=== PATIENT | female | born 1960 | race Two or more races ===

== ENCOUNTER 2017-12-12 07:48 | Outpatient (CLI) | payer OTHER ==
[~2017-12-12 07:48] MED LIST: BISOPROLOL-HCTZ1 TA1; CELEBREX100 MG PO; ORPH100T PO; ZIAC 10/6.25 MG1 TAB
== END 2017-12-12 08:23 | disposition home or self-care (01) ==
LOC: MRI 07:48
DX: C64.1 Malignant neoplasm of right kidney, except renal pelvis (principal)
CPT/HCPCS: 74182

== ENCOUNTER 2023-09-12 11:57 | Outpatient (CLI) | payer OTHER | END 2023-09-12 12:00 | disposition home or self-care (01) | LOC: SONOGRAMA 11:57 | PROVIDERS: ATTEND Pathology Anatomic Pathology & Clinical Pathology | DX: D34 Benign neoplasm of thyroid gland (principal); E07.89 Other specified disorders of thyroid; E04.9 Nontoxic goiter, unspecified ==